=== PATIENT | female | born 1960 | race Caucasian/White ===

== ENCOUNTER 2023-09-13 12:03 | Outpatient (AMB) | payer BC, SELFPAY ==
[2023-09-13 12:06] VITALS: BP 110/76; PULSE 67; TEMP 36.3; O2SAT 96; BMI 35.1
--- NOTE | 2023-09-13 12:06 | MHC.OFFWIV ---
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 Reports this was a mechanical fall. Reports that she twisted her right foot. He has pain on the instep of the right foot that has not gotten better over the past 2 weeks even his rest, ice, and ibuprofen. 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 Feels the pain has gotten progressively worse. Denies any numbness or tingling. Patient has distal pulses +2. Patient does have full range of motion foot. no erythema or edema PFSH Social History Patient Tobacco Use Status: Never used Tobacco Physical Exam Vital Signs: Last Vital Signs Temp 97.4 F 09/13/23 12:06 Pulse 67 09/13/23 12:06 BP 110/76 09/13/23 12:06 Pulse Ox 96 09/13/23 12:06 Oxygen Delivery Method Room Air 09/13/23 12:06 BMI result Body Mass Index 35.1 Const Other: Appearance: Alert.? Oriented X3.? No acute distress.? Neck: Normal inspection.? Neck supple.? Respiratory: No respiratory distress.? Skin: Skin warm and dry.? Normal skin color.? Normal skin turgor.? Extremities: No lower extremity edema. Scant erythema of right foot instep. Distal pulses +2. Full ROM. Patient able to bare weight on extremity. Neuro: Oriented X 3.? No motor deficit.? No sensory deficit. CN 2-12 intact Assessment & Plan Assessment & Plan (1) Right foot pain: Comment: Will obtain foot X-ray. will call patient with results. Patient has been educated to rest the affected limb. Utilize ice and heat. Can continue to utilize Motrin and Tylenol. Code(s): M79.671 - Pain in right foot Plan: Will call patient with x-ray results and give orthopedic referral if necessary Orders: Orders XR foot RT min 3V 09/13/23 M79.671 - Pain in right foot Coding Level of Care Code Est Pt Level 3 (29312) Diagnoses Right foot pain M79.671 Time Spent (min) 26
== END 2023-09-13 13:33 | disposition home or self-care (01) ==
PROVIDERS: PCP Internal Medicine; Visit Provider Nurse Practitioner Primary Care
DX: M79.671 Pain in right foot (principal)
CPT/HCPCS: 99213

== ENCOUNTER 2023-09-13 12:36 | Outpatient (REF) | payer BC, SELFPAY ==
--- NOTE | ~2023-09-13 | XR_ITS ---
EXAMINATION: XR FOOT, RIGHT CLINICAL INFORMATION: Foot pain COMPARISON: None available. TECHNIQUE: AP, lateral, and oblique views of the right foot. FINDINGS: The bones and soft tissues are normal. No fracture. Alignment is anatomic. Joint spaces are maintained. XR/XR foot RT min 3V IMPRESSION: Normal right foot.
== END 2023-09-13 12:37 | disposition home or self-care (01) ==
LOC: HO.HMGCX 12:36
PROVIDERS: PCP Internal Medicine; Visit Provider Nurse Practitioner Primary Care
DX: M79.671 Pain in right foot (principal)
CPT/HCPCS: 73630

== ENCOUNTER 2024-04-11 09:31 | Outpatient (REF) | payer BC, SELFPAY ==
[2024-04-11 14:40] LABS: Adenovirus PCR Not Detected (Not Detect.); Bordetella parapertussis PCR Not Detected (Not Detect.); Bordetella pertussis PCR Not Detected (Not Detect.); Chlamydia pneumoniae PCR Not Detected (Not Detect.); Coronavirus 229E PCR Not Detected (Not Detect.); Coronavirus HKU1 PCR Not Detected (Not Detect.); Coronavirus NL63 PCR Not Detected (Not Detect.); Coronavirus OC43 PCR Not Detected (Not Detect.); Human metapneumovirus PCR Not Detected (Not Detect.); Influenza A PCR Not Detected (Not Detect.); Influenza B PCR Not Detected (Not Detect.); Mycoplasma pneumoniae PCR Not Detected (Not Detect.); Parainfluenza 1 PCR Not Detected (Not Detect.); Parainfluenza 2 PCR Not Detected (Not Detect.); Parainfluenza 3 PCR Not Detected (Not Detect.); Parainfluenza 4 PCR Not Detected (Not Detect.); RSV PCR Not Detected (Not Detect.); Rhino/Enterovirus PCR Not Detected (Not Detect.)
[2024-04-11 14:49] LABS: SARS-CoV-2 PCR Not Detected (Not Detect.)
== END 2024-04-11 09:32 | disposition home or self-care (01) ==
LOC: HO.LNP 09:31
PROVIDERS: PCP Internal Medicine; Visit Provider Physician Assistant
DX: J45.31 Mild persistent asthma with (acute) exacerbation (principal); J20.9 Acute bronchitis, unspecified; J06.9 Acute upper respiratory infection, unspecified
CPT/HCPCS: 87633

== ENCOUNTER 2024-04-11 09:31 | Outpatient (AMB) | payer BC, SELFPAY ==
--- NOTE | 2024-04-11 09:38 | AM.OFFWIN_ITS ---
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 Patient Tobacco Use Status: Never used Tobacco Allergies dyclonine Allergy (Mild, Verified 04/11/24 09:41) throw up Do you need a note to return to daycare/school/sports/work: Yes HPI HPI Comments History of Present Illness Details History - The patient is a 63-year-old female pr esenting with sinus congestion and suspected asthma exacerbation. - Symptoms started on 03/28 and initiall y involved congestion, sore throat, headache, and general fatigue. - Symptomatic relief was initially achie yonis using Tylenol and DayQuil; however, symptoms returned with increased severity, presenting as intense headache, sinus congestion, green and bloody nasal discharge, accompanied by chills. - With a known history of asthma, the pa yordy experienced exacerbations leading to significant use of bronchodilators and nebulizers. 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 Physical Exam General: Cooperative, healthy appearing, comfortable and no acute distress Orientation/consciousness: Patient oriented x3 Limitations: No limitations Head: Normal to inspection Ears: Hearing grossly normal bilaterally, external ears normal and TM's normal bilaterally. Nose: Normal external nose present, Normal nares present and Nasal discharge present Face and sinus: Normal facial exam and Sinuses tender Mouth: Normal oral and palatal mucosa present and moist mucous membranes Throat: Yes tonsils normal, Yes uvula midline. Posterior oropharynx erythema Eyes: Appearance normal, both eyes and all related structures Neck: Normal visual inspection Respiratory: Clear to auscultation bilaterally. Normal respiratory effort, able to speak in complete sentences, no respiratory distress, not tachypneic, no tripod positioning and no use of accessory muscles Cardiovascular: Regular rate and rhythm. Normal S1 and S2 Skin: No rashes or lesions noted Neuro: Patient oriented x3 Extremities: Normal to inspection and Yes no clubbing, cyanosis or edema PFSH Social History Patient Tobacco Use Status: Never used Tobacco Review of Systems Const All systems reviewed & are unremarkable except as noted in HPI and below Physical Exam Vital Signs: Last Vital Signs Temp 98.4 F 04/11/24 09:40 Pulse 64 04/11/24 09:40 BP 126/74 04/11/24 09:40 Pulse Ox 98 04/11/24 09:40 Oxygen Delivery Method Room Air 04/11/24 09:40 Assessment & Plan Assessment & Plan (1) Mild persistent asthma with acute bronchitis and acute exacerbation: Code(s): J20.9 - Acute bronchitis, unspecified; J45.31 - Mild persistent asthma with (acute) exacerbation Plan: The patient presents with symptoms consistent with acute sinusitis and an exacerbation of her chronic asthma. Testing for a broad spectrum of viruses has been pursued to identify any underlying cause. The immediate management plan includes administration of Solu-Medrol to address the asthma exacerbation and Tessalon Perles for cough relief, particularly during nighttime. Based on viral panel results, further antibiotic therapy such as Augmentin may be utilized if bacterial infection is suspected. The patient has been provided with a note excusing her from work until comprehensive results manifest, expectedly by the following day. Patient was informed and verbally consented to the use of an ambient scribe for clinic note documentation during this visit Orders: Orders Resp Pathogen Panel - [facility] [place] Today J06.9 - Acute upper respiratory infection, unspecified Medications: New benzonatate 200 mg PO TID PRN 10 caps 0RF cough methylprednisolone PO PER PKG DIR for 6 days 21 ea 0RF Coding Level of Care Code New Pt Level 4 (18631) Diagnoses Mild persistent asthma with acute bronchitis and acute exacerbation J20.9; J45.31
[2024-04-11 09:40] VITALS: BP 126/74; PULSE 64; TEMP 36.9; O2SAT 98
== END 2024-04-11 10:39 | disposition home or self-care (01) ==
PROVIDERS: PCP Internal Medicine; Visit Provider Physician Assistant
DX: J20.9 Acute bronchitis, unspecified (principal); J45.31 Mild persistent asthma with (acute) exacerbation